=== PATIENT | male | born 2000 | race Caucasian/White ===

== ENCOUNTER 2018-08-17 17:56 | Emergency (ER) | payer BC ==
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
[2018-08-17] MEDS ORDERED: Silver Sulfadiazine 1% Crm 50 GM Tube TOP ONE (18:57)
== END 2018-08-17 19:25 | disposition home or self-care (01) ==
LOC: JD.ED 17:56
DX: T25.221A Burn of second degree of right foot, initial encounter (principal); F17.210 Nicotine dependence, cigarettes, uncomplicated
CPT/HCPCS: 16020; 99283; A9270; 16000

== ENCOUNTER 2022-04-15 14:33 | Emergency (ER) | payer BC ==
[2022-04-15] MEDS ORDERED: Bupivacaine 0.5% 10 ML SDV INJECT ONE (14:53)
[2022-04-15] MEDS ORDERED: Diphtheria,Pertussis(Acell),Tetanus Vaccine 0.5 ML Syringe IM ONE (14:53)
[2022-04-15] MEDS ORDERED: Lidocaine 1% 50 ML MDV INJECT ONE (14:53)
[2022-04-15] MEDS ORDERED: cefTRIAXone 1 GM, Lidocaine 1% 2.1 ML IM ONE ×2 (15:56)
== END 2022-04-15 16:34 | disposition home or self-care (01) ==
LOC: JD.ED 14:33
DX: S62.524B Nondisplaced fracture of distal phalanx of right thumb, initial encounter for open fracture (principal); W23.1XXA Caught, crushed, jammed, or pinched between stationary objects, initial encounter
CPT/HCPCS: 64450; 73140-26-F5; 73140-F5; 90471; 90715; 96372; 99282; 99283-25; J0696; J2001; J3490

== ENCOUNTER 2022-04-15 19:06 | Emergency (ER) | payer BC | END 2022-04-15 19:39 | disposition home or self-care (01) | LOC: JD.ED 19:06 | DX: S68.521D Partial traumatic transphalangeal amputation of right thumb, subsequent encounter (principal); F17.210 Nicotine dependence, cigarettes, uncomplicated | CPT/HCPCS: 99282 ==

== ENCOUNTER 2022-05-06 16:33 | Emergency (ER) | payer BC ==
[2022-05-06] MEDS ORDERED: Lidocaine 1% with EPINEPHrine 1:100,000 10 ML MDV INJECT ONE (18:04)
== END 2022-05-06 19:58 | disposition home or self-care (01) ==
LOC: JD.ED 16:33
DX: L76.22 Postprocedural hemorrhage of skin and subcutaneous tissue following other procedure (principal)
CPT/HCPCS: 12002; 99282

== ENCOUNTER 2024-06-07 07:55 | Inpatient (IN) | payer BC, OTHER ==
[2024-06-07] MEDS: Ondansetron 4 MG/2 ML SDV IVPUSH ONE (09:04)
[2024-06-07] MEDS: Sodium Chloride 0.9% 1,000 ML IV STA ×2 (09:04→11:45)
[2024-06-07 09:07] LABS: BASOPHILS ABSOLUTE AUTO 0.1 K/mm3 (0.0-0.2); BASOPHILS PERCENT AUTO 0.5 % (0.0-1.0); EOSINOPHILS ABSOLUTE AUTO 0.1 K/mm3 (0.0-0.4); EOSINOPHILS PERCENT AUTO 0.7 % (0.0-6.0); HEMATOCRIT 53.5 % (42.0-52.0); IMMATURE GRAN ABSOLUTE AUTO 0.06 K/mm3 (0.00-0.05); IMMATURE GRAN PERCENT AUTO 0.6 % (0.0-0.4); LYMPHOCYTES ABSOLUTE AUTO 0.5 K/mm3 (1.0-4.8); MEAN CORPUSCULAR HEMOGLOBIN 29.7 pg (28.0-32.0); MEAN CORPUSCULAR HGB CONC 35.5 g/dl (32.0-36.0); MEAN CORPUSCULAR VOLUME 83.7 fl (83.0-99.0); MEAN PLATELET VOLUME 10.1 fl (9.4-12.4); MONOCYTES ABSOLUTE AUTO 0.5 K/mm3 (0.0-0.8); MONOCYTES PERCENT AUTO 4.7 % (0.0-8.0); NEUTROPHILS ABSOLUTE AUTO 9.5 K/mm3 (1.8-7.7); NEUTROPHILS PERCENT AUTO 88.5 % (41.0-71.0); PLATELET COUNT,PLT 218 K/mm3 (150-400); RED BLOOD CELL COUNT 6.39 M/mm3 (4.52-5.90); WHITE BLOOD CELL COUNT,WBC 10.76 K/mm3 (3.9-11.3)
[2024-06-07 09:33] LABS: A/G RATIO 1.3 (1-2); ALBUMIN 4.5 g/dl (3.4-5.0); ANION GAP 18.8 (5-15); BILIRUBIN TOTAL 1.8 mg/dL (0.2-1.0); BUN/CREATININE RATIO 14.6 (14-18); C-REACTIVE PROTEIN 0.3 mg/dL (<0.30); CALCIUM 9.8 mg/dL (8.5-10.1); CREATININE 1.3 mg/dL (0.7-1.3); EST CRCL DRUG DOSING (CG) 102.92 mL/min; POTASSIUM,K 3.8 mEq/L (3.5-5.1)
[2024-06-07] MEDS: Iopamidol 755 Mg/ML 100 ML Bottle IVPUSH ONE (09:35)
[2024-06-07] MEDS: Sodium Chloride 0.9% 10 ML Syringe FLUSH PRN (09:36)
[2024-06-07] MEDS ORDERED: Acetaminophen 325 MG Tab PO PRN (11:31)
[2024-06-07] MEDS: Ondansetron 4 MG/2 ML SDV IV PRN (12:40)
[2024-06-07 15:43] LABS: HEMATOCRIT 48.6 % (42.0-52.0); HEMOGLOBIN 17.4 gm/dl (14.0-18.0)
[2024-06-07] MEDS: Azithromycin 250 MG Tab PO SCH (18:01)
[2024-06-07 21:18] LABS: HEMOGLOBIN 15.9 gm/dl (14.0-18.0)
[2024-06-08 04:41] LABS: BASOPHILS PERCENT AUTO 0.4 % (0.0-1.0); EOSINOPHILS PERCENT AUTO 0.4 % (0.0-6.0); HEMATOCRIT 45.7 % (42.0-52.0); HEMOGLOBIN 15.8 gm/dl (14.0-18.0); IMMATURE GRAN ABSOLUTE AUTO 0.02 K/mm3 (0.00-0.05); IMMATURE GRAN PERCENT AUTO 0.4 % (0.0-0.4); LYMPHOCYTES ABSOLUTE AUTO 0.8 K/mm3 (1.0-4.8); LYMPHOCYTES PERCENT AUTO 14.2 % (24.0-44.0); MEAN CORPUSCULAR HEMOGLOBIN 29.2 pg (28.0-32.0); MEAN CORPUSCULAR HGB CONC 34.6 g/dl (32.0-36.0); MEAN CORPUSCULAR VOLUME 84.5 fl (83.0-99.0); MEAN PLATELET VOLUME 10.2 fl (9.4-12.4); MONOCYTES ABSOLUTE AUTO 0.4 K/mm3 (0.0-0.8); MONOCYTES PERCENT AUTO 6.3 % (0.0-8.0); NEUTROPHILS ABSOLUTE AUTO 4.4 K/mm3 (1.8-7.7); NEUTROPHILS PERCENT AUTO 78.3 % (41.0-71.0); PLATELET COUNT,PLT 170 K/mm3 (150-400); RED BLOOD CELL COUNT 5.41 M/mm3 (4.52-5.90); WHITE BLOOD CELL COUNT,WBC 5.56 K/mm3 (3.9-11.3)
[2024-06-08 05:26] LABS: ALBUMIN 3.2 g/dl (3.4-5.0); ANION GAP 13.5 (5-15); BILIRUBIN TOTAL 1.4 mg/dL (0.2-1.0); BUN/CREATININE RATIO 11.8 (14-18); CALCIUM 8.1 mg/dL (8.5-10.1); CREATININE 1.1 mg/dL (0.7-1.3); EST CRCL DRUG DOSING (CG) 121.63 mL/min; POTASSIUM,K 3.5 mEq/L (3.5-5.1); PROTEIN TOTAL,TP 6.3 g/dl (6.4-8.2)
[2024-06-12 17:42] LABS: CALPROTECTIN,FECAL 668 ug/g (<=49)
== END 2024-06-08 10:28 | disposition home or self-care (01) | DRG 392 ==
LOC: JD.ED 07:55 → JD.MS 11:31
PROVIDERS: ADMIT Family Medicine; ATTEND Family Medicine
DX: A09 Infectious gastroenteritis and colitis, unspecified (principal); F17.210 Nicotine dependence, cigarettes, uncomplicated
CPT/HCPCS: 36415; 74177; 74177-26; 80053; 82272; 83630; 85014; 85018; 85025; 86140; 87045; 87046; 87493; 87899; 96361; 96374; 96376; 99284-25; A9270-GY; J2405; J3490; J7030; Q9967